=== PATIENT | female | born 1995 | race Caucasian/White ===

== ENCOUNTER 2019-12-11 19:34 | Emergency (ER) | payer OTHER ==
[~2019-12-11] VITALS: Ht 167.6 cm; Wt 68.0 kg
[2019-12-11 20:16] VITALS: BP 116/71
== END 2019-12-11 20:54 | disposition home or self-care (01) ==
LOC: ER 19:34
DX: S01.81XA Laceration without foreign body of other part of head, initial encounter (principal); F32.9 Major depressive disorder, single episode, unspecified; F90.9 Attention-deficit hyperactivity disorder, unspecified type; Z91.048 Other nonmedicinal substance allergy status; W54.0XXA Bitten by dog, initial encounter; Y93.89 Activity, other specified; Y92.89 Other specified places as the place of occurrence of the external cause; Y99.8 Other external cause status
CPT/HCPCS: 99283; A6403